=== PATIENT | female | born 1985 | race Caucasian/White ===

== ENCOUNTER 2017-10-26 08:00 | Outpatient (CLI) | payer MEDICAID ==
[~2017-10-26 08:00] MED LIST: CYCL-1 PO; HYDR-3965 PO
== END 2017-10-26 08:01 | disposition home or self-care (01) ==
LOC: RAD 08:00
PROVIDERS: ATTEND Psychiatry & Neurology Neurology
DX: R20.9 Unspecified disturbances of skin sensation (principal); Z98.890 Other specified postprocedural states
CPT/HCPCS: 95816

== ENCOUNTER 2018-05-15 03:15 | Emergency (ER) | payer MEDICAID ==
[~2018-05-15] VITALS: Ht 177.8 cm; Wt 113.6 kg
[~2018-05-15 03:15] MED LIST changes: -HYDR-3965 PO
[2018-05-15 03:17] VITALS: BP 116/79
[2018-05-15] MEDS ORDERED: TETanus/Pertussis (Acell)/Diphther VAC/PF (Tdap-Adult) 0.5ml syringe IM ONE (04:30)
[2018-05-15] MEDS ORDERED: acetaminophen 325mg tablet PO ONE (04:30)
[2018-05-15] MEDS ORDERED: ketorolac trometh inj. 60 MG/2 ML VIAL IM ONE (04:30)
[2018-05-15] MEDS ORDERED: IBUP-1984 PO (04:49)
== END 2018-05-15 05:23 | disposition home or self-care (01) ==
LOC: ER 03:15
DX: S81.032A Puncture wound without foreign body, left knee, initial encounter (principal); S80.02XA Contusion of left knee, initial encounter; G89.29 Other chronic pain; F12.90 Cannabis use, unspecified, uncomplicated; Z98.890 Other specified postprocedural states; Z88.8 Allergy status to other drugs, medicaments and biological substances; Z88.2 Allergy status to sulfonamides; Z79.899 Other long term (current) drug therapy; V29.9XXA Motorcycle rider (driver) (passenger) injured in unspecified traffic accident, initial encounter; Y93.55 Activity, bike riding; Y92.488 Other paved roadways as the place of occurrence of the external cause; Y99.8 Other external cause status
CPT/HCPCS: 73564; 90471; 90715; 96372; 99283; J1885

== ENCOUNTER 2018-07-29 07:10 | Emergency (ER) | payer MEDICAID, OTHER ==
[~2018-07-29] VITALS: Ht 177.8 cm; Wt 118.8 kg
[~2018-07-29 07:10] MED LIST changes: +DICL50TA8 PO; +NITR100C6 PO
[2018-07-29 07:27] VITALS: BP 136/82
[2018-07-29] MEDS ORDERED: ACET-3067 PO (08:02)
[2018-07-29] MEDS ORDERED: AMOX500C2 PO (08:02)
== END 2018-07-29 08:22 | disposition home or self-care (01) ==
LOC: ER 07:11
DX: H66.92 Otitis media, unspecified, left ear (principal); J01.20 Acute ethmoidal sinusitis, unspecified; G89.29 Other chronic pain; M79.7 Fibromyalgia; F12.90 Cannabis use, unspecified, uncomplicated; Z98.890 Other specified postprocedural states; Z88.6 Allergy status to analgesic agent; Z88.2 Allergy status to sulfonamides; Z88.8 Allergy status to other drugs, medicaments and biological substances
CPT/HCPCS: 99283

== ENCOUNTER 2018-10-31 01:27 | Emergency (ER) | payer MEDICAID ==
[~2018-10-31] VITALS: Ht 177.8 cm; Wt 113.6 kg
[~2018-10-31 01:27] MED LIST changes: +ORPH100T2 PO; +SUCR1TAB34 PO
[2018-10-31] MEDS ORDERED: SUMAtriptan succ. 6 MG/0.5ml vial SQ ONE (01:45)
[2018-10-31] MEDS ORDERED: proCHLORperazine 10 MG/2 ml inj IV ONE (01:45)
[2018-10-31] MEDS ORDERED: normal saline 1000ML IV soln IVB ONE (01:45)
[2018-10-31] MEDS ORDERED: diphenhydrAMINE 50 mg/ml inj IV ONE (01:45)
[2018-10-31] MEDS ORDERED: normal saline 1000ml 1,000 ML IV ONE (01:45)
[2018-10-31] MEDS ORDERED: NO HOME MEDS (01:53)
[2018-10-31 02:12] LABS: BASOPHILS % (AUTO) 0.2 % (0-1); EOSINOPHILS # (AUTO) 0.2 X10'3 (0-0.9); EOSINOPHILS % (AUTO) 1.5 % (0-6); HEMATOCRIT 38.8 % (35.0-45.0); HEMOGLOBIN 12.7 g/dl (12.0-16.0); LYMPHOCYTES # (AUTO) 2.4 X10'3 (1.1-4.8); LYMPHOCYTES % (AUTO) 24.7 % (21-51); MEAN CORPUSCULAR HEMOGLOBIN 28.8 PG (27.0-31.0); MEAN CORPUSCULAR HGB CONC 32.6 g/dL (33.0-36.5); MEAN CORPUSCULAR VOLUME 88.1 FL (78-98); MEAN PLATELET VOLUME 9.2 FL (7.4-10.4); MONOCYTES # (AUTO) 0.7 X10'3 (0-0.9); NEUTROPHILS # (AUTO) 6.5 X10'3 (1.8-7.7); NEUTROPHILS % (AUTO) 66.6 % (42-75); PLATELET COUNT 292 X10'3 (140-440); RED CELL DISTRIBUTION WIDTH 13.5 % (11.5-14.5); WHITE BLOOD COUNT 9.8 X10'3 (4.5-11.0)
[2018-10-31 02:13] LABS: CLARITY,URINE CLEAR (Clear); COLOR,URINE YELLOW (Yellow); GLUCOSE, URINE NEGATIVE (Neg); KETONES,URINE NEGATIVE (Neg); LEUKOCYTE ESTERASE ,URINE NEGATIVE (Neg); NITRITES, URINE NEGATIVE (Neg); OCCULT BLOOD,URINE TRACE-INTACT (Neg); PH,URINE 6.5 (4.8-8.0); PROTEIN,URINE NEGATIVE (Neg)
[2018-10-31 02:15] LABS: UA COLLECTION TYPE CLN CATCH MIDSTREAM
[2018-10-31 02:19] LABS: BACTERIA,URINE NONE SEEN /HPF (Neg); RBC,URINE 0-2 /HPF (0-2); SQUAMOUS EPITHELIAL CELL,UR FEW /LPF (FEW); WBC,URINE 0-4 /HPF (0-4)
[2018-10-31 02:20] LABS: MUCUS STRANDS NONE SEEN /LPF (Neg)
[2018-10-31 02:25] LABS: ANION GAP 8 (8-16); BILIRUBIN,TOTAL 0.3 MG/DL (0.1-1.0); BLOOD UREA NITROGEN 16 MG/DL (7-18); BUN/CREATININE RATIO 19.8 (6.6-38.0); CALCIUM 8.3 MG/DL (8.5-10.1); CHLORIDE 106 MMOL/L (99-107); CREATININE 0.81 MG/DL (0.40-0.90); GLUCOSE 139 MG/DL (70-104); SODIUM 141 MMOL/L (135-145); TOTAL CARBON DIOXIDE 27.2 MMOL/L (24-32); eGFR 82 ML/MIN
[2018-10-31 02:26] LABS: ALANINE AMINOTRANSFERASE 23 U/L (12-78); ALBUMIN 3.3 G/DL (3.4-5.0); ALBUMIN/GLOBULIN RATIO 0.8 (1.1-1.5); ALKALINE PHOSPHATASE 59 IU/L (46-116); ASPARTATE AMINO TRANSFERASE 13 U/L (10-37); TOTAL PROTEIN 7.2 G/DL (6.4-8.2)
[2018-10-31 02:34] LABS: MAGNESIUM 2.1 MG/DL (1.5-2.4)
[2018-10-31 03:28] VITALS: BP 114/65
== END 2018-10-31 03:29 | disposition home or self-care (01) ==
LOC: ER 01:27
DX: G43.109 Migraine with aura, not intractable, without status migrainosus (principal); G89.29 Other chronic pain; M54.9 Dorsalgia, unspecified; F12.90 Cannabis use, unspecified, uncomplicated; Z88.6 Allergy status to analgesic agent; Z88.2 Allergy status to sulfonamides; Z88.8 Allergy status to other drugs, medicaments and biological substances
CPT/HCPCS: 36415; 80053; 81001; 83735; 84443; 85025; 93005; 96361; 96372; 96374; 96375; 99284; J0780; J1200; J7030; J3030

== ENCOUNTER 2019-01-31 21:53 | Emergency (ER) | payer MEDICAID ==
[~2019-01-31] VITALS: Ht 177.8 cm; Wt 113.6 kg
[~2019-01-31 21:53] MED LIST changes: -CYCL-1 PO; -DICL50TA8 PO; -NITR100C6 PO; +NO HOME MEDS; -ORPH100T2 PO; -SUCR1TAB34 PO
[2019-01-31 21:56] VITALS: BP 138/78
[2019-01-31] MEDS ORDERED: orphenadrine citrate 60mg/2ml inj. IM ONE (22:35)
[2019-01-31] MEDS ORDERED: HYDROcodone/acetaminophen 10/325mg tab PO ONE (22:35)
[2019-01-31] MEDS ORDERED: NAPR-56 PO (22:44)
[2019-01-31] MEDS ORDERED: CYCL-1 PO (22:44)
== END 2019-01-31 23:06 | disposition home or self-care (01) ==
LOC: ER 21:54
DX: M54.6 Pain in thoracic spine (principal); M62.830 Muscle spasm of back; G89.29 Other chronic pain; F12.90 Cannabis use, unspecified, uncomplicated; M79.7 Fibromyalgia; Z98.890 Other specified postprocedural states; Z88.6 Allergy status to analgesic agent; Z88.8 Allergy status to other drugs, medicaments and biological substances
CPT/HCPCS: 96372; 99283; J2360

== ENCOUNTER 2019-05-16 01:51 | Emergency (ER) | payer MEDICAID ==
[~2019-05-16] VITALS: Ht 177.8 cm; Wt 113.0 kg
[~2019-05-16 01:51] MED LIST changes: +CYCL-1 PO
[2019-05-16] MEDS ORDERED: ondansetron 4mg rapidly disintigrating tab PO ONE (02:05)
[2019-05-16] MEDS ORDERED: ketorolac trometh. 30mg/ml inj. IM ONE (02:05)
[2019-05-16] MEDS ORDERED: orphenadrine citrate 60mg/2ml inj. IM ONE (02:05)
[2019-05-16] MEDS ORDERED: HYDROcodone/acetaminophen 10/325mg tab PO ONE (02:05)
[2019-05-16 02:32] VITALS: BP 133/83
== END 2019-05-16 02:34 | disposition home or self-care (01) ==
LOC: ER 01:51
DX: M54.5 Low back pain (principal); M25.552 Pain in left hip; G89.29 Other chronic pain; F12.90 Cannabis use, unspecified, uncomplicated; Z98.890 Other specified postprocedural states; Z88.5 Allergy status to narcotic agent; Z88.2 Allergy status to sulfonamides; Z88.8 Allergy status to other drugs, medicaments and biological substances; Z79.899 Other long term (current) drug therapy
CPT/HCPCS: 96372; 99283; J1885; J2360; 99284

== ENCOUNTER 2023-04-01 09:39 | Outpatient (CLI) | payer MEDICAID | END 2023-04-01 23:59 | disposition home or self-care (01) | LOC: RAD 09:39 | PROVIDERS: ATTEND Nurse Practitioner Family | DX: H53.9 Unspecified visual disturbance (principal); R53.1 Weakness; Z86.59 Personal history of other mental and behavioral disorders | CPT/HCPCS: 95819 ==